=== PATIENT | female | born 1970 | race Caucasian/White ===

== ENCOUNTER 2019-07-31 07:44 | Outpatient (CLI) | payer BC, SELFPAY ==
--- NOTE | ~2019-07-31 | XR_ITS ---
EXAMINATION: XR thoracic spine 2V DATE: 07/31/2019 08:05 INDICATION: Chronic upper back pain. TECHNIQUE: 3 views of thoracic spine were obtained. COMPARISON: Chest 2 views 05/28/2014 FINDINGS: There is 7 degrees levocurvature of thoracic spine. There is mild chronic height loss of T6 -T8 vertebral bodies. Intervertebral disc heights are normal. There are endplate osteophytes at many levels. IMPRESSION: 1. Mild thoracic spondylosis. Reviewed, dictated and finalized at location A. NING AND DOCUMENTATION SPECIALIST
== END 2019-07-31 07:45 | disposition home or self-care (01) ==
LOC: ANHIMG 07:47
PROVIDERS: PCP Family Medicine; Visit Provider Nurse Practitioner Family
DX: M54.9 Dorsalgia, unspecified (principal); M47.814 Spondylosis without myelopathy or radiculopathy, thoracic region
CPT/HCPCS: 72070

== ENCOUNTER 2019-09-12 14:25 | Outpatient (CLI) | payer BC, SELFPAY ==
--- NOTE | ~2019-09-12 | XR_ITS ---
EXAMINATION:XR_CERV2-3V_CR DATE: 09/12/2019 14:50 INDICATION: Neck pain TECHNIQUE: AP, lateral, lateral swimmers and odontoid views of the cervical spine are provided. COMPARISON: None FINDINGS: Alignment is normal. The odontoid is intact. No fracture is identified. Vertebral body heig hts and disk spaces are normal. Prevertebral soft tissues are normal. There is mild facet and uncover tebral joint osteoarthritis. IMPRESSION: 1. Mild cervical spondylosis without acute findings. Reviewed, dictated and finalized at location A.
== END 2019-09-12 14:26 | disposition home or self-care (01) ==
PROVIDERS: PCP Family Medicine; Visit Provider Physician Assistant Medical
DX: G89.29 Other chronic pain (principal); M47.892 Other spondylosis, cervical region
CPT/HCPCS: 72040

== ENCOUNTER 2020-03-12 13:14 | Outpatient (CLI) | payer BC, SELFPAY ==
--- NOTE | ~2020-03-12 | XR_ITS ---
EXAMINATION: XR chest 2V DATE: 03/12/2020 13:30 INDICATION: Cough and congestion TECHNIQUE: PA and lateral views of the chest are obtained. COMPARISON: 05/28/2014 FINDINGS: The lungs are free of acute opacities. There is no pleural effusion or pneumothorax. The ca rdiomediastinal silhouette is normal. There is mild thoracic spondylosis. IMPRESSION: 1. No acute cardiopulmonary abnormality. Reviewed, dictated and finalized at location A.
== END 2020-03-12 13:15 | disposition home or self-care (01) ==
PROVIDERS: PCP Family Medicine; Visit Provider Nurse Practitioner Family
DX: R05 Cough (principal)
CPT/HCPCS: 71046

== ENCOUNTER 2020-09-18 09:57 | Outpatient (CLI) | payer BC, SELFPAY ==
--- NOTE | 2020-09-18 | ECG_ITS ---
Measurements Intervals [place] Rate: 75 P: 55 CO: 143 QRS: 11 QRSD: 86 T: 27 QT: 375 QTc: 420 Interpretive Statements SINUS RHYTHM NONSPECIFIC T-WAVE ABNORMALITY- ANTERIOR LEADS BORDERLINE ECG Electronically Signed On 09-18-2020 11:01:22 CDT by Harjit Boyle D.O.
--- NOTE | ~2020-09-18 | XR_ITS ---
XR chest 2V DATE: 09/18/2020 10:17 INDICATION: Cough TECHNIQUE: PA and lateral views COMPARISON: 03/12/2020 PA and lateral chest FINDINGS: Heart size is within normal range. No hilar or mediastinal enlargement. No pulmonary infiltrate or consolidation, pleural effusion or pulmonary vascular congestion or pneumo thorax. Diffuse osteopenia. Minimal levoscoliosis of the thoracic spine. IMPRESSION: No active cardiopulmonary disease Reviewed, dictated and finalized at location A.
== END 2020-09-18 09:58 | disposition home or self-care (01) ==
LOC: ANHIMG 10:06
PROVIDERS: PCP Family Medicine; Visit Provider Nurse Practitioner Family
DX: R05 Cough (principal); R06.02 Shortness of breath
CPT/HCPCS: 71046; 93005

== ENCOUNTER 2020-10-01 12:25 | Outpatient (CLI) | payer BC, SELFPAY ==
--- NOTE | 2020-10-01 12:49 | ECHO_ITS ---
Patient Info Name: Shereen Mcmahan Age: 50 years : 1970 Gender: Female Ht: 61 in Wt: 230 lbs BSA: 2.18 m2 HR: 88 bpm BP: 114 / 89 mmHg Heart Rhythm: Sinus Rhythm Technical Quality: Good Exam Date: 10/01/2020 12:52 PM Exam Location: [facility] Patient Status: Outpatient Admit Date: 10/01/2020 Staff Ordering Physician: Lindsay Malcolm NP Clinical Laboratory Manager: Chantale Kelsey RDCS Attending Provider: Lindsay Malcolm NP Referring Physician: Yun NEWTON; Exam Type: CA echo doppler color flow Study Info Indications - ORTHOPNEA Complete two-dimensional, color flow and Doppler transthoracic echocardiogram is performed. Summary 1. Complete two-dimensional, color flow and Doppler transthoracic echocardiogram is performed. 2. Left ventricular chamber dimension is normal. 3. Left ventricular systolic function is normal, estimated at 60-65%. 4. The left ventricular diastolic function is grade I diastolic dysfunction. 5. E/e' 8 is minimally elevated. 6. Interatrial septum is not well visualized. There is a circumscribed mass adherent to interatrial septum in right atrium measuring 1.3 cm x 1.3 cm, which consider lipomatous septum or myxoma. This is non-obstructive. Consider CONNER if clinically indicated. 7. No pulmonary hypertension, estimated pulmonary arterial systolic pressure is 25 mmHg. 8. There is small circumferential pericardial effusion. Left Ventricle E/e' 8 is minimally elevated. Left ventricular chamber dimension is normal. Left ventricular systolic function is normal, estimated at 60-65%. The left ventricular diastolic function is grade I diastolic dysfunction. Right Ventricle Right ventricular chamber dimension is normal. Right ventricular systolic function is normal. Left Atria Left atrial chamber dimension is normal. Right Atria Right atrial chamber dimension is normal. Atrial Septum Interatrial septum is not well visualized. There is a circumscribed mass adherent to interatrial septum in right atrium measuring 1.3 cm x 1.3 cm, which consider lipomatous septum or myxoma. This is non-obstructive. Consider CONNER if clinically indicated. Aortic Valve The aortic valve is trileaflet. There is no aortic valve stenosis. There is no aortic valve regurgitation. Pulmonic Valve There is no pulmonic regurgitation. Mitral Valve There is no mitral valve stenosis. There is no mitral valve regurgitation. Tricuspid Valve There is no tricuspid valve regurgitation. No pulmonary hypertension, estimated pulmonary arterial systolic pressure is 25 mmHg. Pericardium/Pleural There is small circumferential pericardial effusion. Inferior Vena Cava Normal inferior vena cava with >50% collapse upon inspiration consistent with normal right atrial pressure, 5 mmHg. Aorta The aortic root size at the sinus of Valsalva is normal. Left Ventricular Outflow Tract Name Value Normal LVOT 2D LVOT Diameter 2.0 cm LVOT Doppler LVOT Peak Gradient 5 mmHg LVOT Mean Gradient 3 mmHg LVOT VTI 23 cm
== END 2020-10-01 12:26 | disposition home or self-care (01) ==
LOC: ANHCARD 12:26
PROVIDERS: PCP Family Medicine; Visit Provider Nurse Practitioner Family
DX: R06.01 Orthopnea (principal); R06.02 Shortness of breath; I31.3 Pericardial effusion (noninflammatory)
CPT/HCPCS: 93306

== ENCOUNTER 2020-10-08 08:45 | Outpatient (CLI) | payer BC, SELFPAY ==
--- NOTE | 2020-10-20 16:48 | WPDHOMESLEEP ---
Sleep Study - Home Unattended Date of Study: 10/08/20 Ordering Provider: Emiliano Roca MD Interpreting Provider: Sana Wood MD Home Sleep Study Type: Apnea Link Air Height: 1.55 m Weight: 104.326 kg Body Mass Index: 43.4 Neck Circumference (inches): 14.5 Webber: 14 Reason for Sleep Study Insomnia Sleep History Shereen Mcmahan is a 50 year old female with poor sleep which has been a problem for years. She had COVID in January, with her main symptom being shortness of breath. She later developed more shortness of breath, fatigue, palpitations and occasionally a stabbing pain in her chest. She has a difficult time falling asleep and she wakes up several times throughout the night. She is excessively sleepy during the day. It is difficult for her to wake up in the morning. She has tried medications to help her get to sleep. She frequently awakens from sleep feeling short of breath. She constantly awakens at night with heartburn, belching or coughing. She frequently snores. Occasionally it is loud enough that others complain about it. She constantly has trouble sleeping with a cold. she does not wake up at night gasping for breath. She constantly has breathing problems at night reported to her by others. She frequently sweats excessively at night. She constantly notices her heart pounding or beating irregularly at night and she constantly falls asleep during the day. She rarely falls asleep involuntarily and she rarely falls asleep while driving. She does not have loss of muscle tone was strong emotion. She frequently has daytime difficulties due to excessive sleepiness, works in accounts payable. She does not feel paralyzed on waking or falling asleep. She rarely has vivid dreamlike scenes upon awakening or falling asleep. She does not feel afraid to go to sleep. She denies having nightmares. She rarely remembers her dreams. She occasionally has racing thoughts and occasionally has feelings of sadness and depression. She frequently has feelings of anxiety. She has restless legs, and she uses ropinirole for this. She uses trazodone 50 mg, ropinirole 1 mg 3 times a day for restless legs and then last faxing 37.5 mg in the evening to help her sleep. She has insomnia, fatigue, dizziness, palpitations and headaches. Normal bedtime is 9:00 p.m. falling asleep within 30-45 minutes, typically waking 2 or 3 times at night. While she is awake at night, she will pray, and returns to sleep in 20-40 minutes. She wakes in the morning at 5:00 a.m.. On the weekends, she may go to bed between 9:00 p.m. and 10:00 p.m., waking up later, between 7:00 a.m. and 8:00 a.m.. She estimates getting 6-7 hours of sleep at night. She sometimes takes naps in the day. A short nap is not refreshing. She is usually drowsy for 3 hours or longer after waking. She feels better in the morning compared other times a day. Habits: Never smoked tobacco. Caffeine 8 oz in the morning. No alcohol or recreational drugs. FOR[facility]LY [facility], LAT[facility] Past Medical History Medical History (Updated 10/21/20 @ 21:57 by Sana Wood MD) Depression Pericardial effusion Right atrial mass SOB (shortness of breath) Surgical History Surgical History (Updated 10/21/20 @ 21:55 by Sana Wood MD) History of carpal tunnel surgery bilateral History of hysterectomy History of tonsillectomy Family History Family History Father Family history of malignant neoplasm of gastrointestinal tract Patient's father is in good health Mother Hypertension Thyroid activity decreased Sibling Patient's sister is in good health Patient's brother is in good health Hypertension Grandparent Diabetes mellitus Cerebrovascular accident Other Family history of lung cancer Social History Social History Smoking status: Never smoker Second hand
[2020-10-21 21:43] VITALS: BMI 43.4
== END 2020-10-08 08:46 | disposition home or self-care (01) ==
LOC: ANHCSM 08:47
PROVIDERS: PCP Family Medicine; Visit Provider Family Medicine
DX: G47.00 Insomnia, unspecified (principal); R40.0 Somnolence; G47.10 Hypersomnia, unspecified
CPT/HCPCS: 95806

== ENCOUNTER 2020-10-28 07:22 | Outpatient (CLI) | payer BC, SELFPAY ==
--- NOTE | ~2020-10-28 | US_ITS ---
US abdomen limited INDICATION: Abnormal liver enzymes. PROCEDURE: Realtime right upper abdominal ultrasound. COMPARISON: No prior studies for comparison. FINDINGS: The pancreas is normal without focal mass or pancreatic ductal dilation. Liver echotexture is increased, consistent with fatty infiltration. There is normal directional flow in the portal ve in. The gallbladder is normal without stones, gallbladder wall thickening or pericholecystic fluid. Comm on bile duct measures 4 mm. No sonographic Mcgill's sign. IMPRESSION: 1: Hepatic steatosis. Reviewed, dictated and finalized at location A. IMPRESSION: 1: Hepatic steatosis.
[2020-10-28 08:27] LABS: Alanine Aminotransferase 60 U/L (4-35); Albumin Level 4.1 g/dL (3.5-5.1); Alkaline Phosphatase 177 U/L (38-126); Aspartate Amino Transferase 65 U/L (14-36); Bilirubin,Total 0.4 mg/dL (0.2-1.3)
[2020-10-28 09:16] LABS: Hepatitis B Surface Antigen Negative (Negative)
[2020-10-28 09:21] LABS: HAV RESULT Negative (Negative); Hepatitis B Core IgM Result Negative (Negative)
[2020-10-28 09:33] LABS: Hepatitis C Virus Antibody Negative (Negative)
[2020-10-30 20:45] LABS: GGT 36 U/L (3-70)
== END 2020-10-28 07:23 | disposition home or self-care (01) ==
PROVIDERS: PCP Family Medicine; Visit Provider Nurse Practitioner Family
DX: R74.8 Abnormal levels of other serum enzymes (principal); R00.2 Palpitations; K76.0 Fatty (change of) liver, not elsewhere classified
CPT/HCPCS: 36415; 76705; 80074; 80076; 82977; 84443

== ENCOUNTER → 2020-11-01 01:29 | Outpatient (CLI) | payer BC, SELFPAY ==
[2020-11-01 19:37] LABS: SARS-CoV-2 RNA PCR Negative
== END ==
PROVIDERS: PCP Family Medicine; Visit Provider Internal Medicine Cardiovascular Disease
DX: Z01.812 Encounter for preprocedural laboratory examination (principal); Z20.822 Contact with and (suspected) exposure to COVID-19
CPT/HCPCS: C9803; U0003; U0005

== ENCOUNTER 2020-11-04 01:02 | Day surgery (SDC) | payer BC, SELFPAY ==
[2020-11-03 15:37] VITALS: BMI 46.3
[2020-11-04] VITALS (10 sets, daily range): BP systolic 100–151; BP diastolic 64–85; PULSE 71–85; RESP 13–22; TEMP 36.2; O2SAT 94–100; BMI 47.7
--- NOTE | 2020-11-04 11:37 | WPDMODSED ---
Moderate Sedation Note-Pt Data Patient Data Allergies Allergy/AdvReac Type Severity Reaction Status Date / Time Penicillins Allergy Mild HIGH FEVER Verified 11/04/20 08:27 CHILD Home Medications Medication Instructions Recorded Confirmed Type ropinirole 1 mg tablet See Rx Instructions .ROUTE 12/06/19 11/04/20 Rx .COMPLEX #270 tablet ropinirole 1 mg tablet See Rx Instructions .ROUTE 12/25/19 11/04/20 Rx .COMPLEX #270 tablet cyclobenzaprine 10 mg tablet See Rx Instructions .ROUTE 03/13/20 11/04/20 Rx .COMPLEX #90 tablet trazodone 50 mg tablet See Rx Instructions .ROUTE 03/13/20 11/04/20 Rx .COMPLEX #270 tablet mometasone 50 mcg/actuation nasal See Rx Instructions .ROUTE 05/15/20 11/04/20 Rx spray .COMPLEX #51 spray fexofenadine 180 mg tablet See Rx Instructions .ROUTE 06/01/20 11/04/20 Rx .COMPLEX #90 tablet meloxicam 15 mg tablet See Rx Instructions .ROUTE 09/28/20 11/04/20 Rx .COMPLEX #90 tablet venlafaxine 37.5 mg See Rx Instructions .ROUTE 10/23/20 11/04/20 Rx capsule,extended release 24 hr .COMPLEX #90 cap Current Medications: Active Medications Sodium Chloride (Normal Saline Iv) 1,000 mls @ 30 mls/hr IV CONT .Q24H ELO Sedation/Anesthesia: No previous sedation/anesthesia problems (including family history). [facility] Past Medical History Medical History (Updated 10/21/20 @ 21:57 by Sana Wood MD) Depression Pericardial effusion Right atrial mass SOB (shortness of breath) Surgical History Surgical History (Updated 10/21/20 @ 21:55 by Sana Wood MD) History of carpal tunnel surgery bilateral History of hysterectomy History of tonsillectomy Family History Family History Father Family history of malignant neoplasm of gastrointestinal tract Patient's father is in good health Mother Hypertension Thyroid activity decreased Sibling Patient's sister is in good health Patient's brother is in good health Hypertension Grandparent Diabetes mellitus Cerebrovascular accident Other Family history of lung cancer Social History Social History Smoking status: Former smoker Tobacco type: cigarettes Second hand tobacco smoke exposure: Yes Additional smoking assessment comments: Patient reports she smoked one time. Alcohol intake: never Substance use: never Substance use type: does not use Living arrangements: with family Additional occupation/education comments: accounts payable Gender identity (if verbalized by the patient): Female Spiritual care concerns: No Mod Sed Physical Exam Physical Exam Pre Procedural Exam: Normal: Airway Hours since solid foods: 10 Hours since liquid intake: 10 Internal Medicine - PN: Obj Da Vital Signs Vital Signs: Vital Signs - 24 hr 11/04/20 08:30 Temperature 36.2 C L Pulse Rate 85 Respiratory Rate 22 H Blood Pressure 151/81 H Pulse Oximetry 96 Meds/Results Medications: Active Medications Generic Name Dose Route Start Last Admin Trade Name Freq PRN Reason Stop Dose Admin Sodium Chloride 1,000 mls @ 30 mls/hr 11/04/20 08:30 Normal Saline Iv IV CONT .Q24H ELO ASA Classification/Sedation ASA Classification/Sedation ASA Class: II Emergent: No Risks: Risks, benefits and alternatives explained and patient/family accepted plan for sedation. Patient re-evaluated immediately prior to sedation.
--- NOTE | 2020-11-04 11:37 | WPDHPUPDATE1 ---
History and Physical Update Update Date/Time: 11/04/20 11:37 History and Physical has been reviewed, including an updated exam of the patient. There are NO changes in the patient's condition. Risks, benefits, and alternatives have been discussed and questions answered. Patient agrees to proceed with procedure.
--- NOTE | 2020-11-04 12:10 | P.PCNTEE_ITS ---
CONNER TransEsophageal Echocardiogram Date of procedure: 11/04/20 Findings: TRANSESOPHAGEAL ECHOCARDIOGRAM REPORT DATE OF PROCEDURE: 11/04/2020 INDICATION FOR PROCEDURE: Assessment of atrial septal structured as seen on surface echocardiogram BRIEF CLINICAL HISTORY: 50-year-old female with longstanding history of sporadic palpitations, history of COVID-19 infection, anxiety/depression, morbid obesity. Patient recently had echocardiogram on 10/22/2020 which is reportedly showed 1.3 x 1.3 circumscribed mass adherent to the atrial septum on the right side. Transesophageal echocardiogram was recommended for further evaluation. PROCEDURES PERFORMED: 1. Multiplane transesophageal echocardiography with color flow and Doppler assessment 2. Moderate sedation- CPT code 32678 SEDATION: Propofol 80 milligram IV in divided doses; start time 1156 , stop time 1208 , total [id number] time 14 minutes; Lisseth Perez RN was trained observer for moderate sedation. PROCEDURE: After obtaining informed consent, patient was brought to the chest Pain Center. She was given lidocaine gel, followed by 2 sprays of benzocaine spray. Bite block was placed. Patient was positioned in the left lateral position. After adequate sedation with propofol, transesophageal scope was advanced and multiplanar transesophageal echocardiography was performed with and without color flow and Doppler assessment. Patient's vitals were monitored throughout the procedure. Patient tolerated procedure well. There were no immediate procedure related complications. LEFT VENTRICLE: Normal size and wall thickness, normal LV systolic function, ejection fraction 60-65%. RIGHT VENTRICLE: Normal size and systolic function LEFT ATRIUM: Borderline enlargement, no evidence of left atrial appendage thrombus. Spontaneous echo contrast seen in the left atrium. RIGHT ATRIUM: Normal size, eustachian valve is present. ATRIAL SEPTUM: Mild lipomatous hypertrophy is seen; no evidence of at definite mass on the atrial septum. No shunt on color Doppler and on injection of agitated normal saline. MITRAL VALVE: Normal structure, trivial MR. AORTIC VALVE: Trileaflet aortic valve. Probable subaortic ridge is seen. Mild aortic regurgitation. No aortic stenosis. TRICUSPID VALVE: Normal structure, trace TR. Unable to assess RVSP due to inadequate TR jet. PULMONIC VALVE: Normal structure PERICARDIUM: Normal, no significant pericardial effusion AORTA: Normal root size RHYTHM: Sinus rhythm CONCLUSIONS: 1. Normal LV size and wall thickness, normal LV systolic function, ejection fraction 60-65%. 2. No evidence of left atrial appendage thrombus. 3. Mild lipomatous hypertrophy of atrial septum; no definite masses seen. No evidence of shunt on color Doppler and on injection of agitated normal saline. 4. Normal mitral valve structure, trace MR. 5. Trileaflet aortic valve, probable subaortic ridge, mild aortic regurgitation. PLAN/RECOMMENDATION: Mild lipomatous hypertrophy of atrial septum, no definite mass was seen. Probable subaortic ridge was seen. Patient will undergo period ic surveillance echocardiograms.
== END 2020-11-04 13:30 | disposition home or self-care (01) ==
PROVIDERS: PCP Family Medicine; Visit Provider Internal Medicine Cardiovascular Disease
PROC: (CPT 93312; principal; 2020-11-04 09:30)
DX: R93.1 Abnormal findings on diagnostic imaging of heart and coronary circulation (principal); D17.4 Benign lipomatous neoplasm of intrathoracic organs; I35.1 Nonrheumatic aortic (valve) insufficiency; R00.2 Palpitations; I31.3 Pericardial effusion (noninflammatory); R06.01 Orthopnea; R06.00 Dyspnea, unspecified; F41.8 Other specified anxiety disorders; Z87.891 Personal history of nicotine dependence; Z86.16 Personal history of COVID-19; E66.01 Morbid (severe) obesity due to excess calories; Z68.42 Body mass index [BMI] 45.0-49.9, adult
CPT/HCPCS: 93312; 93320; 93325; J2704; J7040

== ENCOUNTER 2020-11-12 12:20 | Outpatient (CLI) | payer BC, SELFPAY ==
--- NOTE | ~2020-11-12 | MM_ITS ---
EXAMINATION: MM screening [facility] BI w hitesh HISTORY: Screening mammogram TECHNIQUE: Craniocaudal and mediolateral oblique 3-D tomosynthesis images were obtained and synthetic 2-D images were generated. CAD analysis was submitted and interpreted. COMPARISON: 08/07/2018, 08/25/2016, 08/11/2016 BREAST PARENCHYMAL COMPOSITION: The breasts are almost entirely fatty. FINDINGS: There is no evidence of suspicious mass, calcification, or architectural distortion to sugg est malignancy in either breast. There has been no suspicious interval change. IMPRESSION: 1. No mammographic evidence of malignancy. 2. Recommend routine screening mammography in one year. BI-RADS Category 1: Negative Reviewed, dictated and finalized at location A.
== END 2020-11-12 12:21 | disposition home or self-care (01) ==
LOC: ANHIMG 12:22
PROVIDERS: PCP Family Medicine; Visit Provider Nurse Practitioner Family
DX: Z12.31 Encounter for screening mammogram for malignant neoplasm of breast (principal)
CPT/HCPCS: 77063; 77067

== ENCOUNTER 2021-01-22 10:26 | Outpatient (CLI) | payer OTHER, BC, SELFPAY ==
--- NOTE | ~2021-01-22 | XR_ITS ---
EXAMINATION: XR knee LT 3V EXAM DATE: 01/22/2021 11:04 INDICATION: Bilateral knee pain. No known recent injury. TECHNIQUE: 3 projections of the left knee. Correlation is made to contralateral knee same date. FINDINGS: No evidence osteochondral defect or joint body in the left knee joint. There is mild lyle llofemoral compartment primary osteoarthritis. There are no acute fractures or dislocations identifie d. There is no subcutaneous gas. The soft tissue is unremarkable. There are no radiopaque foreign bodies. No joint effusion. IMPRESSION: Mild left patellofemoral compartment osteoarthritis. Reviewed, dictated and finalized at location A.
--- NOTE | ~2021-01-22 | XR_ITS ---
EXAMINATION: XR wrist RT min 3V EXAM DATE: 01/22/2021 11:04 INDICATION: No known recent injury provided at this time. Pain of the right wrist. TECHNIQUE: Right wrist frontal, frontal with ulnar deviation, oblique and lateral projections obtain ed and reviewed. There is no prior study for comparison. FINDINGS: Right wrist scapholunate joint space is maintained. There are no acute fractures or disloca tions identified. There is no subcutaneous gas. The soft tissue is unremarkable. There are no rad iopaque foreign bodies. IMPRESSION: 1. Unremarkable XR wrist RT min 3V exam. Reviewed, dictated and finalized at location A.
--- NOTE | ~2021-01-22 | XR_ITS ---
EXAMINATION: XR knee RT 3V EXAM DATE: 01/22/2021 11:04 INDICATION: No known recent injury provided at this time. Pain of the knees bilaterally. TECHNIQUE: Three projections of the right knee. There is no prior study for comparison. FINDINGS: No evidence osteochondral defect or joint body in the right knee joint. There is mild pat ellofemoral compartment primary osteoarthritis. No joint effusion. There are no acute fractures or d islocations identified. There is no subcutaneous gas. The soft tissue is unremarkable. There are no radiopaque foreign bodies. IMPRESSION: Mild right patellofemoral compartment osteoarthritis. Reviewed, dictated and finalized at location A.
== END 2021-01-22 10:27 | disposition home or self-care (01) ==
PROVIDERS: PCP Family Medicine; Visit Provider Nurse Practitioner Family
DX: M25.531 Pain in right wrist (principal); M17.0 Bilateral primary osteoarthritis of knee
CPT/HCPCS: 73110; 73562

== ENCOUNTER 2021-12-11 00:16 | Day surgery (SDC) | payer BC, SELFPAY ==
[2021-11-24 13:43] VITALS: BMI 33.3
--- NOTE | 2021-12-10 14:37 | WPDANESEPPF ---
Anes - Initial Pre Proc Eval Procedure: Operation Date: 12/11/21 10:30 Proposed Procedures p Screening Colonoscopy - Ean Wilson MD <Adama Contreras DO - Last Filed: 12/10/21 14:39> Date/Time: 12/10/21 14:37 <Adama Contreras DO - Last Filed: 12/10/21 14:39> Surgeon: Ean Wilson MD <Adama Contreras DO - Last Filed: 12/10/21 14:39> Pre Op Diagnosis: neoplasm screening <Adama Contreras DO - Last Filed: 12/10/21 14:39> Patient Data Age: 51 Gender: F Height: 1.55 m Weight: 80 kg <Adama Contreras DO - Last Filed: 12/10/21 14:39> Allergies Allergy/AdvReac Type Severity Reaction Status Date / Time Penicillins Allergy Mild HIGH FEVER Verified 11/25/21 08:08 CHILD <Adama Contreras DO - Last Filed: 12/10/21 14:39> Home Medications Medication Instructions Recorded Confirmed Type mometasone 50 mcg/actuation nasal See Rx Instructions .Route 05/15/20 11/25/21 Rx spray .COMPLEX #51 sprays venlafaxine 37.5 mg See Rx Instructions .Route 10/23/20 11/25/21 Rx capsule,extended release 24 hr .COMPLEX #90 caps naproxen 500 mg tablet 500 mg PO BID PRN pain #60 tabs 02/09/21 11/25/21 Rx fexofenadine 180 mg tablet See Rx Instructions .Route 06/03/21 11/25/21 Rx .COMPLEX #90 tabs trazodone 50 mg tablet See Rx Instructions .Route 08/31/21 11/25/21 Rx .COMPLEX #270 tabs cyclobenzaprine 10 mg tablet See Rx Instructions .Route 10/28/21 11/25/21 Rx .COMPLEX #90 tabs ropinirole 1 mg tablet See Rx Instructions .Route 10/28/21 11/25/21 Rx .COMPLEX #270 tabs valacyclovir 1 gram tablet 2,000 mg PO Q12H #4 tabs 11/25/21 11/25/21 Rx (Valtrex) ketoconazole 2 % shampoo 1 applic topical 2XW #120 mL 11/29/21 Rx <Adama Contreras DO - Last Filed: 12/10/21 14:39> Patient hx anesthesia problems: none <Catherine Rodriguez CRNA - Last Filed: 12/11/21 09:37> Family hx anesthesia problems: none <Catherine Rodriguez CRNA - Last Filed: 12/11/21 09:37> Results Review: All pre-operative results and documents have been reviewed as part of the pre-operative evaluation. <Adama Contreras DO - Last Filed: 12/10/21 14:39> PMFSH Past Medical History Medical History: Medical History (Updated 12/10/21 @ 14:39 by Adama Contreras DO) BMI 32.0-32.9,adult BMI 35.0-35.9,adult Body mass index (BMI) of 40.1 to 44.9 in adult COVID-19 Depression Hiatal hernia Pericardial effusion PONV (postoperative nausea and vomiting) Right atrial mass SOB (shortness of breath) <Adama Contreras DO - Last Filed: 12/10/21 14:39> Surgical History Surgical History: Surgical History H/O cardiac catheterization History of carpal tunnel surgery bilateral History of gastric bypass History of hysterectomy History of tonsillectomy <Adama Contreras DO - Last Filed: 12/10/21 14:39> Family History Family History: Family History Father Family history of malignant neoplasm of gastrointestinal tract Patient's father is in good health Mitral valve prolapse Mother Hypertension Thyroid activity decreased Sibling Patient's sister is in good health Patient's brother is in good health Hypertension COVID-19 Grandparent Diabetes mellitus Cerebrovascular accident Other Family history of lung cancer <Adama Contreras DO - Last Filed: 12/10/21 14:39> Social History Social History: Social History Smoking status: Never smoker Second hand tobacco smoke exposure: Yes Additional smoking assessment comments: Patient reports she smoked one time. Alcohol intake: current Alcohol use details: rarely Substance use: never Substance use type: does not use Living arrangements: with family Add
--- NOTE | 2021-12-10 15:25 | PM.HPGS ---
History of Present Illness History of Present Illness Consent: Risks, benefits, and alternatives have been discussed and questions answered. Patient agrees to proceed with procedure. Chief complaint: neoplasm screening Narrative: Shereen Mcmahan is a 51 year old female Referred for colon cancer screening. She has a history of polyps. Review of Systems Review of Systems: All systems reviewed & are unremarkable except as noted in HPI and below PMFSH Past Medical History Medical History (Updated 12/10/21 @ 14:39 by Adama Contreras, ) BMI 32.0-32.9,adult BMI 35.0-35.9,adult Body mass index (BMI) of 40.1 to 44.9 in adult COVID-19 Depression Hiatal hernia Pericardial effusion PONV (postoperative nausea and vomiting) Right atrial mass SOB (shortness of breath) Surgical History Surgical History H/O cardiac catheterization History of carpal tunnel surgery bilateral History of gastric bypass History of hysterectomy History of tonsillectomy Family History Family History Father Family history of malignant neoplasm of gastrointestinal tract Patient's father is in good health Mitral valve prolapse Mother Hypertension Thyroid activity decreased Sibling Patient's sister is in good health Patient's brother is in good health Hypertension COVID-19 Grandparent Diabetes mellitus Cerebrovascular accident Other Family history of lung cancer Social History Social History Smoking status: Never smoker Second hand tobacco smoke exposure: Yes Additional smoking assessment comments: Patient reports she smoked one time. 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 Gender identity (if verbalized by the patient): Female Spiritual care concerns: No Meds Home Medications and Allergies Home Medications Medication Instructions Recorded Confirmed Type mometasone 50 mcg/actuation nasal See Rx Instructions .Route 05/15/20 12/11/21 Rx spray .COMPLEX #51 sprays venlafaxine 37.5 mg See Rx Instructions .Route 10/23/20 12/11/21 Rx capsule,extended release 24 hr .COMPLEX #90 caps naproxen 500 mg tablet 500 mg PO BID PRN pain #60 tabs 02/09/21 12/11/21 Rx fexofenadine 180 mg tablet See Rx Instructions .Route 06/03/21 12/11/21 Rx .COMPLEX #90 tabs trazodone 50 mg tablet See Rx Instructions .Route 08/31/21 12/11/21 Rx .COMPLEX #270 tabs cyclobenzaprine 10 mg tablet See Rx Instructions .Route 10/28/21 12/11/21 Rx .COMPLEX #90 tabs ropinirole 1 mg tablet See Rx Instructions .Route 10/28/21 12/11/21 Rx .COMPLEX #270 tabs valacyclovir 1 gram tablet 2,000 mg PO Q12H #4 tabs 11/25/21 12/11/21 Rx (Valtrex) ketoconazole 2 % shampoo 1 applic topical 2XW #120 mL 11/29/21 12/11/21 Rx Allergies Allergy/AdvReac Type Severity Reaction Status Date / Time Penicillins Allergy Mild HIGH FEVER Verified 12/11/21 09:43 CHILD Exam Resp: Auscultation: clear to auscultation bilaterally Cardio: Rate: regular rate Rhythm: regular rhythm GI: GI Palp: Yes Soft to palpation and No Tenderness to palpation present (GI) Assessment and Plan Assessment and plan (1) Screening for malignant neoplasm of colon: Code(s): Z12.11 - Encounter for screening for malignant neoplasm of colon Status: Acute Assessment and Plan: Colonoscopy with possible biopsy or polypectomy or cautery or injection of substances.
[2021-12-11 09:46] VITALS: BP 142/89; PULSE 61; RESP 16; TEMP 36.5; O2SAT 100; BMI 32.8
[2021-12-11] MEDS: LACTATED RINGERS 1,000 ML 150 ML IV CONT (09:57)
[2021-12-11 10:44] VITALS: BP 115/74; PULSE 57; RESP 19; O2SAT 99
[2021-12-11 10:54] VITALS: BP 116/77; PULSE 59; RESP 18; O2SAT 99
[2021-12-11 11:04] VITALS: BP 120/76; PULSE 53; RESP 20; O2SAT 100
== END 2021-12-11 11:13 | disposition home or self-care (01) ==
PROVIDERS: PCP Family Medicine; Visit Provider Internal Medicine Gastroenterology
PROC: 0DJD8ZZ Inspection of Lower Intestinal Tract, Via Natural or Artificial Opening Endoscopic (ICD-10-PCS; CPT 45378; principal; 2021-12-11 10:30)
DX: Z12.11 Encounter for screening for malignant neoplasm of colon (principal); K62.1 Rectal polyp; F32.A Depression, unspecified; Z86.16 Personal history of COVID-19; Z98.84 Bariatric surgery status
CPT/HCPCS: 45385; 88305; J2704; J7120

== ENCOUNTER 2023-02-08 11:04 | Outpatient (CLI) | payer OTHER, SELFPAY ==
--- NOTE | ~2023-02-08 | CT_ITS ---
EXAMINATION: CT abdomen pelvis w con DATE: 02/08/2023 11:43 INDICATION: Right upper quadrant abdominal pain. TECHNIQUE: Computed tomography (CT) of the abdomen and pelvis was performed with 100 mL Omnipaque 350 intravenous contrast. Automated exposure control and iterative reconstruction technique were employe d. The dose-length product was 338.90 mGy-cm. COMPARISON: CT abdomen and pelvis 11/03/2015 FINDINGS: The visualized portions of the lung bases demonstrate mild atelectasis. No pleural effusion . The heart size is normal. No pericardial effusion. There is a small sliding hiatal hernia. There ar e changes of gastric bypass procedure. The liver demonstrates steatosis adjacent to the falx or malig nant. The gallbladder, spleen, pancreas, adrenal glands, and kidneys are normal. The appendix is norm al. There are no dilated loops of bowel. There is diffuse wall thickening of the colon, worse on the left, consistent with colitis. There is physiologic fluid in the pelvis. There are no pathologically enlarged lymph nodes. There is mild thoracic and lumbar spondylosis. There is mild chronic anterior w edging of T9 vertebral body. IMPRESSION: 1. Colitis. Reviewed, dictated and finalized at location A. IMPRESSION: 1. Colitis.
== END 2023-02-08 11:05 | disposition home or self-care (01) ==
PROVIDERS: PCP Family Medicine; Visit Provider Nurse Practitioner Family
DX: R10.11 Right upper quadrant pain (principal); R10.819 Abdominal tenderness, unspecified site; K52.9 Noninfective gastroenteritis and colitis, unspecified
CPT/HCPCS: 74177; Q9967

== ENCOUNTER 2023-06-16 14:52 | Outpatient (CLI) | payer OTHER, SELFPAY ==
--- NOTE | ~2023-06-16 | MM_ITS ---
EXAMINATION: MM screening shira BI w hitesh HISTORY: Screening TECHNIQUE: Craniocaudal and mediolateral oblique 3-D tomosynthesis images were obtained and synthetic 2-D images were generated. CAD analysis was submitted and interpreted. COMPARISON: Comparison to multiple prior studies sequentially, with oldest reviewed study dated 07/26. BREAST PARENCHYMAL COMPOSITION: There are scattered areas of fibroglandular density. FINDINGS: There is no evidence of suspicious mass, calcification, or architectural distortion to sugg est malignancy in either breast. There has been no suspicious interval change. IMPRESSION: 1. No mammographic evidence of malignancy. 2. Recommend routine screening mammography in one year. BI-RADS Category 1: Negative Reviewed, dictated and finalized at location A. [employer]
== END 2023-06-16 14:53 | disposition home or self-care (01) ==
PROVIDERS: PCP Family Medicine; Visit Provider Nurse Practitioner Family
DX: Z12.31 Encounter for screening mammogram for malignant neoplasm of breast (principal)
CPT/HCPCS: 77063; 77067

== ENCOUNTER 2024-12-11 09:10 | Outpatient (CLI) | payer OTHER, SELFPAY ==
--- NOTE | ~2024-12-11 | XR_ITS ---
Clinical Indication: Pain in the thoracic spine PA and lateral views of the chest: Comparison: 09/16/2020 Findings: The lungs are clear, without evidence of focal consolidation or pleural effusion. Cardiome diastinal silhouette is within normal limits. Probable T9 compression deformity. Impression: T9 compression fracture. Clear lungs. Reviewed, dictated and finalized at [facility]. Impression: T9 compression fracture. Clear lungs.
--- NOTE | ~2024-12-11 | XR_ITS ---
Thoracic spine: Clinical Indication: Back pain AP and lateral views were performed. T9 compression fracture present, age-indeterminate. No subluxation seen. The intervertebral disc spac es appear normal. Paravertebral soft tissues appear normal. Impression: T9 compression fracture. Reviewed, dictated and finalized at [facility]. Impression: T9 compression fracture.
== END 2024-12-11 09:11 | disposition home or self-care (01) ==
PROVIDERS: PCP Family Medicine; Visit Provider Nurse Practitioner Adult Health
DX: S22.070A Wedge compression fracture of T9-T10 vertebra, initial encounter for closed fracture (principal); X58.XXXA Exposure to other specified factors, initial encounter
CPT/HCPCS: 71046; 72072

== ENCOUNTER 2024-12-31 09:48 | Outpatient (CLI) | payer OTHER, SELFPAY ==
--- NOTE | ~2024-12-31 | XR_ITS ---
EXAMINATION: XR thoracic spine 3V DATE: 12/31/2024 10:01 INDICATION: Thoracic spine pain TECHNIQUE: One AP, lateral and lateral swimmer's views of the thoracic spine were obtained. COMPARISON: 12/11/2024 FINDINGS: Mild thoracic kyphosis. A degree upper thoracolumbar dextrocurvature. No interval change in a T9 comp ression fracture with 30% anterior vertebral body height loss which is progressed subsequent to CT da griselda 02/08/2023. Additional unchanged chronic mild compression fractures at T7 and T8, each with 10% an terior vertebral body height loss unchanged since 2022. There is mild disc height loss at several lev els in the mid to lower thoracic spine. Visualized portion of lungs are clear. Heart size is normal. IMPRESSION: 1. No change in T7-T9 compression fractures with the greatest anterior vertebral body height loss of 30% at T9 which had progressed in the interval between the prior study and an earlier CT on 02/08/2023 Reviewed, dictated and finalized at location A. IMPRESSION: 1. No change in T7-T9 compression fractures with the greatest anterior vertebra l body height loss of 30% at T9 which had progressed in the interval between th e prior study and an earlier CT on 02/08/2023
== END 2024-12-31 09:49 | disposition home or self-care (01) ==
LOC: MICIMG 09:50
PROVIDERS: PCP Nurse Practitioner Adult Health; Visit Provider Nurse Practitioner Adult Health
DX: S22.060D Wedge compression fracture of T7-T8 vertebra, subsequent encounter for fracture with routine healing (principal); X58.XXXD Exposure to other specified factors, subsequent encounter
CPT/HCPCS: 72072

== ENCOUNTER 2025-02-05 10:35 | Outpatient (CLI) | payer OTHER, SELFPAY ==
--- NOTE | ~2025-02-05 | XR_ITS ---
XR thoracic spine 3V Indication: S22.070A - Wedge compression fracture of T9-T10 vertebra,... Comparison: None Findings: There are remote fractures of T9 and T10 with loss of height 20%, no acute fracture or subluxation. Moderate osteopenia. Moderate loss of disc height throughout. Soft tissues unremarkable Impression: No acute abnormality. Reviewed, dictated and finalized at location A. Impression: No acute abnormality.
== END 2025-02-05 10:36 | disposition home or self-care (01) ==
LOC: MICIMG 10:36
PROVIDERS: PCP Family Medicine; Visit Provider Nurse Practitioner Adult Health
DX: S22.070A Wedge compression fracture of T9-T10 vertebra, initial encounter for closed fracture (principal); X58.XXXA Exposure to other specified factors, initial encounter
CPT/HCPCS: 72072

== ENCOUNTER 2025-03-12 13:07 | Outpatient (CLI) | payer OTHER, SELFPAY ==
--- NOTE | ~2025-03-12 | DEXA_ITS ---
Bone Density Report Name: TESS PAYNE Age: 55 Sex: Female Ethnicity: White Date of : 1970 Indication: postmenopausal; screening for osteoporosis; height loss; hysterectomy; Referring Provider: PINA ORTIZ Study: Bone densitometry was performed. Exam Date: March 12, 2025 Accession number: [id number] Bone Density: Region BMD T-score Z-score Classification AP Spine(L1-L4) 0.651 -3.6 -2.5 Osteoporosis Femoral Neck (Left) 0.633 -1.9 -0.8 Osteopenia Total Hip (Left) 0.704 -1.9 -1.2 Osteopenia Femoral Neck (Right) 0.584 -2.4 -1.3 Osteopenia Total Hip (Right) 0.657 -2.3 -1.6 Osteopenia Total Hip Mean 0.680 -2.1 -1.4 Osteopenia World Health Organization criteria for BMD impression classify patients as: Normal (T-score at or above -1.0), Osteopenia (T-score between -1.0 and -2.5), or Osteoporosis (T-score at or below -2.5). 10-year Fracture Risk: FRAX not reported because: Some T-score for Spine Total or Hip Total or Femoral Neck at or below -2.5 Clinical Information Provided by Patient: Has used the following medications: Vitamin D, Calcium Has the following medical conditions: Hysterectomy Patient maximum height was 63 Menopause Age: 46 No regular weight bearing exercise Drinks caffeinated beverages Onset of menses at age 11 Number of children 2 Impression: The patient has osteoporosis, based on the Total Spine T-score. Discussion: HIGH RISK OF FRACTURE. BONE DENSITY IS UNDESIRABLY LOW AT ONE OR MORE SKELETAL SITES, CONSISTENT WITH OSTEOPOROSIS. ALSO, BONE DENSITY IS LOWER THAN EXPECTED FOR AGE AND SEX AT ONE OR MORE SKELETAL SITES; RECOMMEND A DILIGENT SEARCH FOR SECONDARY CAUSES OF BONE LOSS. This patient's lowest T-score meets the World Health Organization's (WHO) criteria for osteoporosis at one or more sites (T-score -2.5 or below). In untreated patients, the risk of osteoporotic fracture increases approximately two-fold for each 1.0 SD decrease in T-score. Low bone density is not the only risk factor for fracture; also consider factors such as patient's age, frailty or poor health, risk of falling, risk of injury, previous osteoporotic fracture, family history of osteoporosis, cigarette smoking, low body weight, etc. Not everyone with low bone mineral density has osteoporosis; osteomalacia and other metabolic bone disorders should also be considered. Patients who have osteoporosis should be evaluated for specific diseases and conditions (secondary causes) that may cause or contribute to bone loss. The [place] [employer]ocrin[employer] (AACE) and National Osteoporosis Foundation (NOF) recommend pharmacologic intervention for all postmenopausal women whose T-score is in this range. Also, this patient's bone mineral density is below the range considered normal for healthy age-, sex-, and race-matched controls at least one site (Z-score -2.0 or below). This warrants careful evaluation for diseases and conditions that may contribute to accelerated bone loss. The patient should follow a healthful lifestyle (good nutrition with adequate calcium and vitamin D, and appropriate weight-bearing exercise). Follow-Up: Consider a repeat BMD and Vertebral Fracture Assessment (VFA) exam in 2 years or sooner if medically necessary, to reassess this patient's status. Reported by: MALCOLM on 03/12/2025 1:49:00 PM. Reviewed, dictated and finalized at location A.
== END 2025-03-12 13:08 | disposition home or self-care (01) ==
LOC: MICIMG 13:08
PROVIDERS: PCP Family Medicine; Visit Provider Nurse Practitioner Adult Health
DX: Z13.820 Encounter for screening for osteoporosis (principal); M81.0 Age-related osteoporosis without current pathological fracture; M85.852 Other specified disorders of bone density and structure, left thigh; M85.851 Other specified disorders of bone density and structure, right thigh
CPT/HCPCS: 77080

== ENCOUNTER 2025-03-20 08:23 | Outpatient (CLI) | payer OTHER, SELFPAY ==
--- NOTE | ~2025-03-20 | XR_ITS ---
XR thoracic spine 2V Indication: Wedge compression fracture of T9-T10 vertebra; CHECK UP Comparison: None Findings: Remote compression fractures of T9 and T10, no acute fracture or subluxation. Moderate loss of disc height throughout. Soft tissues unremarkable Impression: No acute abnormality. Reviewed, dictated and finalized at location P. Impression: No acute abnormality.
== END 2025-03-20 08:24 | disposition home or self-care (01) ==
LOC: MICIMG 08:24
PROVIDERS: PCP Family Medicine; Visit Provider Nurse Practitioner Adult Health
DX: S22.070A Wedge compression fracture of T9-T10 vertebra, initial encounter for closed fracture (principal); X58.XXXA Exposure to other specified factors, initial encounter
CPT/HCPCS: 72070